=== PATIENT | female | born 1985 | race Caucasian/White ===

== ENCOUNTER 2017-02-18 19:13 | Emergency (ER) | payer MEDICAID ==
[~2017-02-18] VITALS: Ht 157.5 cm; Wt 115.0 kg
[~2017-02-18 19:13] MED LIST: FLUO20TA20 PO; LORTA5 PO; PREG75 PO; TYLE500T PO
[2017-02-18 19:15] VITALS: BP 127/81; PULSE 96; RESP 16; TEMP 97.9; O2SAT 97
[2017-02-18] MEDS ORDERED: GABA300C5 PO (19:44)
[2017-02-18] MEDS ORDERED: SODIUM CHLOR 0.9% 1000 ML INJ 1,000 ML IV SCH (19:47)
--- NOTE | 2017-02-18 19:54 | PD ---
HPI Chief Complaint: Flank/Kidney Pain Time Seen by Provider: 19:39 Travel History International Travel<30 days: No Contact w/Intl Traveler<30days: No Traveled to known affect area: No History of Present Illness HPI This is a 31-year-old female who presents to the emergency department with 2 days of left-sided flank pain, constant, moderate severity, described as a throbbing associated with a warm sensation when she urinates and urinary frequency. She does say she had some chills last night but no fever. She denies any vomiting. She denies any hematuria. She's never had symptoms like this before. She just completed her menstrual cycle. PFSH Past Medical History Blood Disorders: No Heart Rhythm Problems: No Cancer: No Cardiovascular Problems: No High Cholesterol: No Chest Pain: No Congestive Heart Failure: No Developmental Delay: No Diabetes: No Diminished Hearing: No Endocrine: No Genitourinary: No Hepatitis: No Hiatal Hernia: No Immune Disorder: No Musculoskeletal: Yes (BACK PAIN) Neurologic: Yes (MIGRAINES, NEUROPATHY LEFT LEG) Psychiatric: Yes (ANXIETY/ DEPRESSION) Reproductive: No Respiratory: Yes (MOUTH BREATHER) Migraines: Yes Thyroid Disease: No ?: Not LMP: 02/16/2017 Menopausal: No : 3 Para: 3 Past Surgical History Abdominal Surgery: Yes (LAP. CHOLECYSTECTOMY) AICD: No Section: Yes (X3 ) Cholecystectomy: Yes Gynecologic Surgery: Yes (C SECTION X 3) Joint Replacement: No Pacemaker: No Social History Alcohol Use: No Tobacco Use: No Substance Use: No Allergies-Medications (Allergen,Severity, Reaction): Coded Allergies: Sumatriptan (Verified Allergy, Severe, Anaphylaxis, 02/18/17) Vancomycin (Verified Allergy, Severe, ITCH, 02/18/17) Reported Meds & Prescriptions Reported Meds & Active Scripts Active Reported Gabapentin 300 Mg Cap 300 Mg PO HS Review of Systems Except as stated in HPI: all other systems reviewed are Neg Physical Exam Narrative GENERAL:Well appearing, no acute distress SKIN: Focused skin assessment warm and dry. HEAD: Atraumatic. Normocephalic. EYES: Pupils equal and round. No injection or drainage. ENT: Moist mucous membranes NECK: Trachea midline. CARDIOVASCULAR: Regular rate and rhythm. No murmur appreciated. RESPIRATORY: Clear to auscultation. Breath sounds equal bilaterally. GASTROINTESTINAL: Abdomen soft, tender to palpation in the left upper and left lower quadrants with no rebound or guarding. : Left CVA tenderness MUSCULOSKELETAL: No obvious deformities. NEUROLOGICAL: Awake and alert. No obvious cranial nerve deficits. Moving all extremities. PSYCHIATRIC: Appropriate mood and affect; insight and judgment normal. Data Data Last Documented VS Vital Signs Date Time Temp Pulse Resp B/P Pulse Ox O2 Delivery O2 Flow Rate FiO2 02/18/17 20:33 85 98 Room Air 02/18/17 19:15 97.9 16 127/81 Orders Complete Blood Count With Diff (02/18/17 19:47) Comprehensive Metabolic Panel (02/18/17 19:47) Urinalysis - C+S If Indicated (02/18/17 19:47) Iv Access Insert/Monitor (02/18/17 19:47) Ecg Monitoring (02/18/17 19:47) Oximetry (02/18/17 19:47) Sodium Chlor 0.9% 1000 Ml Inj (Ns 1000 M (02/18/17 19:47) Sodium Chloride 0.9% Flush (Ns Flush) (02/18/17 20:00) Ketorolac Inj (Toradol Inj) (02/18/17 20:00) Ed Urine Pregnancytest Poc (02/18/17 19:47) Urine Culture (02/18/17 19:54) Creatine Kinase (Cpk) (02/18/17 21:12) Labs Laboratory Tests Test 02/18/17 19:54 White Blood Count 11.5 TH/MM3 Red Blood Count 4.75 MIL/MM3 Hemoglobin 11.8 GM/DL Hematocrit 36.4 % Mean Corpuscular Volume 76.5 FL Mean Corpuscular Hemoglobin 24.9 PG Mean Corpuscular Hemoglobin 32.5 % Concent Red Cell Distribution Width 14.9 % Platelet Count 302 TH/MM3 Mean Platelet Volume 8.5 FL Neutrophils (%) (Auto) 64.9 % Lymphocytes (%) (Auto) 28.7 % Monocytes (%) (Auto) 6.1 % Eosinophils (%) (Auto) 0.1 % Basophils (%) (Auto) 0.2 % Neutrophils # (Auto) 7.4 TH/MM3 Lymphocytes # (Auto) 3.3 TH/MM3 Monocytes # (Auto) 0.7 TH/MM3 Eosinophils # (Auto) 0.0 TH/MM3 Basophils # (Auto) 0.0 TH/MM3 CBC Comment DIFF FINAL Differential Comment Urine Color LIGHT-YELLOW Urine Turbidity HAZY Urine pH 7.0 Urine Specific [place] 1.005 Urine Protein NEG mg/dL Urine Glucose (UA) NEG mg/dL Urine Ketones NEG mg/dL Urine Occult Blood LARGE Urine Nitrite NEG Urine Bilirubin NEG Urine Urobilinogen LESS THAN 2.0 MG/DL Urine Leukocyte Esterase MOD Urine RBC 1 /hpf Urine WBC 25 /hpf Urine Squamous Epithelial 7 /hpf Cells Urine Bacteria OCC /hpf Microscopic Urinalysis Comment CULTURE INDICATED Sodium Level 138 MEQ/L Potassium Level 3.8 MEQ/L Chloride Level 104 MEQ/L Carbon Dioxide Level 28.2 MEQ/L Anion Gap 6 MEQ/L Blood Urea Nitrogen 8 MG/DL Creatinine 1.00 MG/DL Estimat Glomerular Filtration 64 ML/MIN Rate Random Glucose 88 MG/DL Calcium Level 8.3 MG/DL Total Bilirubin 0.2 MG/DL Aspartate Amino Transf 18 U/L (AST/SGOT) Alanine Aminotransferase 23 U/L (ALT/SGPT) Alkaline Phosphatase 158 U/L Total Protein 8.0 GM/DL Albumin 3.1 GM/DL [facility] Medical Decision Making Medical Screen Exam Complete: Yes Emergency Medical Condition: Yes Interpretation(s) Afebrile, mild tachycardia, normotensive Mild leukocytosis Electrolytes are reassuring Urinalysis: Urinary tract infection, large occult blood with 1 red blood cell Differential Diagnosis Urinary tract infection, pyelonephritis, nephrolithiasis, musculoskeletal back pain, rhabdomyolysis Narrative Course This is a 31-year-old female who presents the emergency department with left- sided flank pain, dysuria and frequency. She was placed on a monitor and an IV was established. Labs are obtained which demonstrated a mild leukocytosis. She was found to have a urinary tract infection. She was given a dose of IV antibiotics as well as IV Toradol and IV fluids. On reassessment she feels slightly better. I think she is appropriate for outpatient management and she is not otherwise systemically ill. Patient will be discharged home. Diagnosis Primary Impression: Pyelonephritis Patient Instructions: General Instructions Additional Instructions: If you develop fever, persistent vomiting, back pain, or inability to eat return to the emergency department as your urine infection may have progressed to a kidney infection. Complete your antibiotics as prescribed. Stay well hydrated with Gatorade or water. Followup with your primary care physician in 2-3 days if your symptoms have not resolved. Med/Other Pt SpecificInfo: Prescription(s) given Scripts Cephalexin (Keflex)500 Mg Snh135 Mg PO Q12H #14 CAP Ref 0 Prov:Christal Benites MD 02/18/17 Disposition: 01 DISCHARGE HOME Condition: Stable Christal Benites MD Feb 18, 2017 19:54
[2017-02-18] MEDS ORDERED: KETOROLAC TROMETHAMINE 30 MG/ML (IVP) VIAL IVP ONE (20:00)
[2017-02-18] MEDS ORDERED: SODIUM CHLORIDE 0.9% FLUSH 10 ML FLUSH IV FLUSH PRN (20:00)
[2017-02-18 20:22] LABS: AUTOMATED NEUTROPHIL # 7.4 TH/MM3 (1.8-7.7); BASOPHIL % 0.2 % (0.0-2.0); EOSINOPHIL % 0.1 % (0.0-4.0); HEMATOCRIT 36.4 % (35.0-46.0); HEMO FLAGS DIFF FINAL; LYMPH % 28.7 % (9.0-44.0); LYMPHOCYTE # 3.3 TH/MM3 (1.0-4.8); MEAN CELL VOLUME 76.5 FL (80.0-100.0); MEAN CORPUSCULAR HEMOGLOBIN 24.9 PG (27.0-34.0); MEAN CORPUSCULAR HGB CONC 32.5 % (32.0-36.0); MONO % 6.1 % (0.0-8.0); NEUT % 64.9 % (16.0-70.0); PLATELET COUNT 302 TH/MM3 (150-450); RED BLOOD COUNT 4.75 MIL/MM3 (4.00-5.30); RED CELL DISTRIBUTION WIDTH 14.9 % (11.6-17.2); WHITE BLOOD COUNT 11.5 TH/MM3 (4.0-11.0)
[2017-02-18 20:33] VITALS: PULSE 85; O2SAT 98
[2017-02-18 20:45] LABS: ANION GAP 6 MEQ/L (5-15); AST (GOT) 18 U/L (15-37); BICARBONATE 28.2 MEQ/L (21.0-32.0); BLOOD UREA NITROGEN 8 MG/DL (7-18); CHLORIDE 104 MEQ/L (98-107); GLOMERULAR FILTRATION RATE 64 ML/MIN (>89); POTASSIUM 3.8 MEQ/L (3.5-5.1); SODIUM (NA) 138 MEQ/L (136-145)
[2017-02-18 20:47] LABS: ALT (GPT) 23 U/L (10-53)
[2017-02-18 20:49] LABS: ALKALINE PHOSPHATASE 158 U/L (45-117); TOTAL BILIRUBIN ADULT 0.2 MG/DL (0.2-1.0)
[2017-02-18 21:02] LABS: BACTERIA, URINE OCC /hpf; BLOOD, URINE LARGE (NEG); COMMENT (UR) CULTURE INDICATED; CULTURE IF INDICATED CULTURE INDICATED; GLUCOSE,URINE NEG (NEG); KETONE, URINE NEG (NEG); NITRITE,URINE NEG (NEG); SQUAMOUS EPITHELIAL CELL URINE 7 /hpf (0-5); URINE COLOR LIGHT-YELLOW (YELLW/STRAW)
[2017-02-18] MEDS ORDERED: CEPH-460 PO (21:14)
[2017-02-18] MEDS ORDERED: cefTRIAXone INJ 1,000 MG in SODIUM CHLORIDE 0.9% INJ 50 ML IV ONE (21:15)
[2017-02-18 21:49] LABS: CREATINE KINASE 87 U/L (26-192)
[2017-02-18] MEDS ORDERED: TRAM50TA PO (21:55)
[2017-02-18] MEDS ORDERED: MORPHINE SULFATE 4 MG/ML INJ IV PUSH ONE (22:00)
[2017-02-18 22:26] VITALS: BP 99/64
== END 2017-02-18 22:12 | disposition home or self-care (01) ==
LOC: NEPD 19:13
DX: N12 Tubulo-interstitial nephritis, not specified as acute or chronic (principal); B96.20 Unspecified Escherichia coli [E. coli] as the cause of diseases classified elsewhere; B96.89 Other specified bacterial agents as the cause of diseases classified elsewhere
CPT/HCPCS: 80053; 81001; 82550; 84703; 85025; 87077; 87086; 87186; 96361; 96374; 96375; 99284; J0696; J1885; J2270; J7030

== ENCOUNTER 2017-10-18 08:38 | Emergency (ER) | payer MEDICAID ==
[~2017-10-18] VITALS: Ht 157.5 cm; Wt 117.5 kg
[~2017-10-18 08:38] MED LIST changes: +CEPH-460 PO; -FLUO20TA20 PO; +GABA300C5 PO; -LORTA5 PO; -PREG75 PO; +TRAM50TA PO; -TYLE500T PO
[2017-10-18 08:39] VITALS: BP 142/97; PULSE 115; RESP 20; TEMP 99.1; O2SAT 97
--- NOTE | 2017-10-18 09:27 | PD ---
HPI Chief Complaint: Cold / Flu Symptoms Time Seen by Provider: 09:11 Travel History International Travel<30 days: No Contact w/Intl Traveler<30days: No Traveled to known affect area: No History of Present Illness HPI 32-year-old female presents to the emergency Department with complaint of cold/ flu symptoms 3 days. Reports dry nose, dry throat, left-sided headache, chest congestion, back pain, cough, bilateral ear pain and chest pressure with breathing and coughing only, shortness of breath which is worse with activity, nosebleeds, vomiting. Reports subjective fevers. Denies abdominal pain, diarrhea. Denies chest pain. Is also complaining of warmth on urination and dark urine; denies dysuria or urinary frequency. Daughter has had similar symptoms. She has tried Lanie-[place], Excedrin, TheraFlu. Last menstrual period September 29. No contraceptive use. No known relieving or aggravating factors. Symptoms are [id number] in severity. Allergies to vancomycin and sumatriptan. Primary care provider is Dr. Alonso. History of anemia, vitamin D deficiency, depression, anxiety. Has no other medical complaints. No other modifying factors or associated signs and symptoms. PFSH Past Medical History Blood Disorders: No Heart Rhythm Problems: No Cancer: No Cardiovascular Problems: No High Cholesterol: No Chest Pain: No Congestive Heart Failure: No Developmental Delay: No Diabetes: No Diminished Hearing: No Endocrine: No Genitourinary: No Hepatitis: No Hiatal Hernia: No Immune Disorder: No Medical other: Yes (HX ANEMIA) Musculoskeletal: Yes (BACK PAIN) Neurologic: Yes (MIGRAINES, NEUROPATHY LEFT LEG) Psychiatric: Yes (ANXIETY/ DEPRESSION) Reproductive: No Respiratory: Yes (MOUTH BREATHER) Migraines: Yes Thyroid Disease: No ?: Unknown Menopausal: No : 3 Para: 3 Past Surgical History Abdominal Surgery: Yes (LAP. CHOLECYSTECTOMY) AICD: No Section: Yes (X3 ) Cholecystectomy: Yes Gynecologic Surgery: Yes (C SECTION X 3) Joint Replacement: No Neurologic Surgery: Yes (LUMBAR LAMI) Pacemaker: No Other Surgery: Yes Social History Alcohol Use: No Tobacco Use: No Substance Use: No Allergies-Medications (Allergen,Severity, Reaction): Coded Allergies: sumatriptan (Unverified Allergy, Severe, Anaphylaxis, 05/02/17) vancomycin (Unverified Allergy, Severe, ITCH, 05/02/17) Reported Meds & Prescriptions Reported Meds & Active Scripts Active Zofran Odt (Ondansetron Odt) 4 Mg Tab 4 Mg SL Q8HR PRN Ibuprofen 800 Mg Tab 800 Mg PO Q6HR PRN Amoxicillin 500 Mg Cap 500 Mg PO BID 10 Days Reported Gabapentin 300 Mg Cap 300 Mg PO HS Review of Systems Except as stated in HPI: all other systems reviewed are Neg Physical Exam Narrative GENERAL: Well-nourished, well-developed female patient, in no acute distress; afebrile, nontoxic-appearing SKIN: Warm and dry. No rash. HEAD: Atraumatic. Normocephalic. EYES: Pupils equal and round. No scleral icterus. No injection or drainage. ENT: Mucosa pink and moist. No erythema or exudates. No uvular edema. No uvular , palatal, or tonsillar deviation. Airway patent. EARS: Bilateral pinnae and external canals appear within normal limits. Left tympanic membrane with erythema, without dullness; minimal loss of landmarks; no perforation. Bilateral tympanic membranes without erythema, dullness or perforation. NECK: Trachea midline. No lymphadenopathy. CARDIOVASCULAR: Regular rate and rhythm. No murmur appreciated. RESPIRATORY: No accessory muscle use. Clear to auscultation. Breath sounds equal bilaterally. No retractions or tachypnea. GASTROINTESTINAL: Abdomen soft, non-tender, nondistended. Hepatic and splenic margins not palpable. Bowel sounds are active 4 quadrants. MUSCULOSKELETAL: No obvious deformities. No clubbing. No cyanosis. No edema. BACK: Left CVA tenderness. NEUROLOGICAL: Awake and alert. Oriented 3. No obvious cranial nerve deficits. Motor grossly within normal limits. Normal speech. Moves all extremities. 5/5 strength to all extremities. PSYCHIATRIC: Appropriate mood and affect; insight and judgment normal. Data Data Last Documented VS Vital Signs Date Time Temp Pulse Resp B/P (MAP) Pulse Ox O2 Delivery O2 Flow Rate FiO2 10/18/17 11:45 10/18/17 11:20 86 10/18/17 08:39 99.1 20 97 Room Air Orders Orders Urinalysis - C+S If Indicated (10/18/17 09:26) Influenzae A/B Antigen (10/18/17 09:37) Ibuprofen (Motrin) (10/18/17 09:45) Chest, Single Ap (10/18/17 09:37) Ondansetron Odt (Zofran Odt) (10/18/17 09:45) Ed Urine Pregnancytest Poc (10/18/17 09:37) Ed Discharge Order (10/18/17 11:22) Labs Laboratory Tests Test 10/18/17 09:36 Urine Color YELLOW Urine Turbidity CLEAR Urine pH 7.0 Urine Specific [place] 1.011 Urine Protein NEG mg/dL Urine Glucose (UA) NEG mg/dL Urine Ketones NEG mg/dL Urine Occult Blood NEG Urine Nitrite NEG Urine Bilirubin NEG Urine Urobilinogen LESS THAN 2.0 MG/DL Urine Leukocyte Esterase NEG Urine RBC LESS THAN 1 /hpf Urine WBC LESS THAN 1 /hpf Urine Squamous Epithelial Cells 3 /hpf Urine Bacteria OCC /hpf Urine Mucus FEW /lpf Microscopic Urinalysis Comment CULT NOT INDICATED MDM Medical Decision Making Medical Screen Exam Complete: Yes Emergency Medical Condition: Yes Medical Record Reviewed: Yes Differential Diagnosis Upper respiratory infection, otitis media, influenza, pneumonia, UTI, pyelonephritis, Narrative Course 32-year-old female with cold/flu symptoms. Left otitis media on physical exam. Has urinary symptoms also. Patient is afebrile and nontoxic-appearing. Complaining of chest pressure with coughing and deep breathing only. And complaining of shortness of breath. Lungs are clear and equal throughout. Patient is in no acute distress. Oxygen saturation is 97% on room air. Chest x -ray, influenza, urinalysis, UPT, ibuprofen, Zofran ordered. 1110: Chest x-ray unremarkable. Urinalysis without signs of infection. Influenza negative. I will prescribe amoxicillin for left otitis media. On reexamination patient says she vomited her ibuprofen. Patient given Gatorade for oral challenge. Zofran prescribed for home. Instructed patient to follow up with primary care provider. Patient verbalizes understanding and agreement with treatment plan. Patient is medically cleared and stable for discharge. Discussed reasons to return to the emergency department. Patient agrees with treatment plan. The patients vital signs are stable and the patient is stable for outpatient follow-up and treatment. Patient discharged home, stable and in no acute distress. Diagnosis Primary Impression: Left otitis media Qualified Codes: H66.92 - Otitis media, unspecified, left ear Referrals: [facility] Primary Care Physician Patient Instructions: Cold Symptoms (ED), General Instructions, Safe Use of Cough and Cold Medicines (ED), Serous Otitis Media (ED) Departure Forms: Tests/Procedures, Work Release Special Instructions: No work until fever free for 24 hours. Fever is any temperature less than 100.5. Additional Instructions: Ibuprofen or Tylenol as directed and as needed to reduce fever; may alternate ibuprofen and Tylenol as needed every 3 hours to minimize fever Mrvv-sue-[id number] cold/flu medications as directed and as needed for symptom management Get plenty of sleep/rest Drink plenty of fluids to prevent dehydration; such as Gatorade, Powerade, Pedialyte [place] diet to encourage nutrition such as crackers, fruit, applesauce, toast, soup etc. Use an air humidifier/turn off ceiling fans Follow-up with your primary care provider within 1 day Return immediately to the emergency department with worsening of symptoms Med/Other Pt SpecificInfo: Prescription(s) given Scripts Ondansetron Odt (Zofran Odt) 4 Mg Tab 4 MG SL Q8HR Y for Nausea/Vomiting, #6 TAB 0 Refills Prov: Gabrielle Del Cid 10/18/17 Ibuprofen (Ibuprofen) 800 Mg Tab 800 MG PO Q6HR Y for PAIN, #40 TAB 0 Refills Prov: Gabrielle Del Cid 10/18/17 Amoxicillin (Amoxicillin) 500 Mg Cap 500 MG PO BID for Infection for 10 Days, #20 CAP 0 Refills Prov: Gabrielle Del Cid 10/18/17 Disposition: 01 DISCHARGE HOME Condition: Stable Gabrielle Del Cid Oct 18, 2017 09:27
[2017-10-18] MEDS ORDERED: ONDANSETRON ODT 4 MG TAB PO ONE (09:45)
[2017-10-18] MEDS ORDERED: IBUPROFEN 800 MG TAB PO ONE (09:45)
[2017-10-18 10:01] LABS: BACTERIA, URINE OCC /hpf; BILIRUBIN, URINE NEG (NEG); BLOOD, URINE NEG (NEG); GLUCOSE,URINE NEG (NEG); KETONE, URINE NEG (NEG); MUCUS URINE FEW /lpf (OCC); NITRITE,URINE NEG (NEG); SQUAMOUS EPITHELIAL CELL URINE 3 /hpf (0-5); URINE COLOR YELLOW (YELLW/STRAW); URINE LEUKOCYTE ESTERASE NEG (NEG)
[2017-10-18 10:23] VITALS: PULSE 103
--- NOTE | 2017-10-18 10:39 | RADRPT ---
EXAM DATE/TIME: 10/18/2017 10:05 [place] COMPARISON: No previous studies available for comparison. INDICATIONS : Mid-sternal chest pains with inspiration. MEDICAL HISTORY : None. SURGICAL HISTORY : None. ENCOUNTER: Initial ACUITY: 3 days PAIN SCORE: 7/10 LOCATION: Bilateral chest FINDINGS: A single view of the chest demonstrates the lungs to be symmetrically aerated without evidence of mas s, infiltrate or effusion. The cardiomediastinal contours are unremarkable. Osseous structures are intact. CONCLUSION: 1. No acute cardiopulmonary disease. Daniele Doll MD on October 18, 2017 at 10:36 Board Certified Radiologist. This report was verified electronically.
[2017-10-18] MEDS ORDERED: IBUP1TAB7 PO (11:12)
[2017-10-18] MEDS ORDERED: AMOX500C PO (11:12)
[2017-10-18 11:20] VITALS: PULSE 86
[2017-10-18] MEDS ORDERED: ZOFR4TAB3 SL (11:23)
== END 2017-10-18 11:48 | disposition home or self-care (01) ==
LOC: NEPD 08:38
DX: H66.92 Otitis media, unspecified, left ear (principal); R07.89 Other chest pain
CPT/HCPCS: 71045; 81001; 84703; 87804; 99284